=== PATIENT | male | born 1960 | race Caucasian/White ===

== ENCOUNTER 2017-10-04 14:12 | Inpatient (IN) | payer SELFPAY ==
[~2017-10-04] VITALS: Ht 172.7 cm; Wt 60.1 kg
--- NOTE | ~2017-10-04 | CON ---
[place], [place] REPORT OF CONSULTATION NAME: [facility] UNIT #: [id number] ROOM: 403 DOCTOR: EULALIA WOOD MD,BRANDON BIRTHDATE: [birth year] DOS: 10/07/2017 The patient was asked for consultation to be seen for the acute pneumonia of the respiratory problem, but the patient signed against medical advice. The patient left the hospital prior to the assessment completion. BRANDON ESTEBAN MD CM:CONSTR:REPORT OF CONSULTATION 1315 10/07/17 2015 interface
[~2017-10-04 14:12] MED LIST: ISOSORBIDE30 MG PO
[2017-10-04 14:31] VITALS: BP 120/88
[2017-10-04 14:54] LABS: BASO % 0.1 % (0.0-1.0); EOS % 0.2 % (1.0-4.0); HEMATOCRIT 47.9 % (42.0-52.0); HEMOGLOBIN 16.6 g/dl (14.0-18.0); LYMPH # 1.4 10*3/uL (1.3-4.4); MEAN CORPUSCULAR HGB 35.7 pg (27.0-31.0); MEAN CORPUSCULAR HGB CONC 34.7 g/dl (33.0-37.0); MEAN PLATELET VOLUME 11.1 fl (9.6-12.3); MONO # 1.1 10*3/uL (0.1-1.0); MONO % 8.4 % (3.0-9.0); NEUT # 10.2 10*3/uL (2.3-7.9); NEUT % 79.8 % (47.0-73.0); PLATELET COUNT AUTOMATED 137 10*3/uL (130-400); RED BLOOD COUNT 4.65 10*6/uL (4.50-5.90); RED CELL DISTRI WIDTH 13.4 % (0-14.5); WHITE BLOOD COUNT 12.8 10*3/uL (4.8-10.8)
[2017-10-04 15:00] VITALS: BP 118/86
[2017-10-04 15:03] LABS: ACT PARTIAL THROMBO TIME 25.3 SECONDS (20.8-31.5); INTERNATIONAL NORM RATIO 1.1 (2.0-3.5)
[2017-10-04 16:03] LABS: ALBUMIN 3.5 gm/dl (3.1-4.5); ALKALINE PHOSPHATASE 78 U/L (45-117); BUN 9 mg/dl (7-24); CHLORIDE 98 mmol/L (98-107); CREATININE 0.68 mg/dL (0.70-1.30); POTASSIUM 4.3 mmol/L (3.5-5.1); SGOT/AST 101 IU/L (3-35); SODIUM 133 mmol/L (136-145); TOTAL PROTEIN 8.5 gm/dL (6.4-8.2)
[2017-10-04 16:06] LABS: SGPT/ALT 44 U/L (12-78)
[2017-10-04 16:08] LABS: TROPONIN I < 0.015 ng/ml (<0.045)
[2017-10-04 17:00] VITALS: BP 124/82
[2017-10-04 17:50] VITALS: BP 137/88
[2017-10-04 20:00] VITALS: BP 134/86
[2017-10-05 01:08] VITALS: BP 143/85
[2017-10-05 07:44] LABS: HEMATOCRIT 47.9 % (42.0-52.0); MEAN CELL VOLUME 105.7 fl (80.0-94.0); MEAN CORPUSCULAR HGB 35.3 pg (27.0-31.0); MEAN CORPUSCULAR HGB CONC 33.4 g/dl (33.0-37.0); PLATELET COUNT AUTOMATED 102 10*3/uL (130-400); RED BLOOD COUNT 4.53 10*6/uL (4.50-5.90); RED CELL DISTRI WIDTH 13.3 % (0-14.5); WHITE BLOOD COUNT 6.2 10*3/uL (4.8-10.8)
[2017-10-05 08:00] VITALS: BP 143/94
[2017-10-05 08:08] LABS: PLATELET SUFFICIENCY LOW (NORMAL); TOTAL CELLS COUNTED 100 #CELLS; TOXIC GRANULATION SLIGHT
[2017-10-05 08:17] LABS: BUN 9 mg/dl (7-24); CHLORIDE 102 mmol/L (98-107); CHOLESTEROL 124 mg/dL (<200); HDL CHOLESTEROL 40 mg/dl (40-60); PHOSPHOROUS 2.6 mg/dL (2.5-4.9); POTASSIUM 4.1 mmol/L (3.5-5.1); SGOT/AST 76 IU/L (3-35); SGPT/ALT 38 U/L (12-78); SODIUM 135 mmol/L (136-145); TOTAL PROTEIN 7.8 gm/dL (6.4-8.2)
[2017-10-05 08:24] LABS: ALKALINE PHOSPHATASE 65 U/L (45-117); THYROID STIM HORMONE (HS) 0.373 uIU/ml (0.358-4.75)
[2017-10-05 08:29] LABS: VITAMIN D, 25-HYDROXY 13.6 ng/mL (30-100)
[2017-10-05 10:17] LABS: CREATININE 0.66 mg/dL (0.70-1.30); LDL CHOLESTEROL 73 mg/dL (9-159); TRIGLYCERIDES 56 mg/dl (<150); VLDL CHOLESTEROL 11 mg/dL (6-40)
[2017-10-05 12:00] VITALS: BP 139/83
[2017-10-05 16:00] VITALS: BP 136/81
[2017-10-05 20:00] VITALS: BP 121/75
[2017-10-06 00:58] VITALS: BP 131/84
[2017-10-06 07:29] LABS: HEMATOCRIT 44.7 % (42.0-52.0); HEMOGLOBIN 14.9 g/dl (14.0-18.0); MEAN CELL VOLUME 105.2 fl (80.0-94.0); MEAN CORPUSCULAR HGB 35.1 pg (27.0-31.0); MEAN CORPUSCULAR HGB CONC 33.3 g/dl (33.0-37.0); MEAN PLATELET VOLUME 9.3 fl (9.6-12.3); PLATELET COUNT AUTOMATED 120 10*3/uL (130-400); RED BLOOD COUNT 4.25 10*6/uL (4.50-5.90); RED CELL DISTRI WIDTH 13.3 % (0-14.5)
[2017-10-06 07:50] LABS: BUN 9 mg/dl (7-24); CHLORIDE 102 mmol/L (98-107); CREATININE 0.51 mg/dL (0.70-1.30); SODIUM 136 mmol/L (136-145)
[2017-10-06 08:00] VITALS: BP 126/79
[2017-10-06 08:21] LABS: PLATELET SUFFICIENCY LOW (NORMAL); TOTAL CELLS COUNTED 100 #CELLS
[2017-10-06 12:00] VITALS: BP 123/64
[2017-10-06 16:39] VITALS: BP 104/65
[2017-10-06 20:10] VITALS: BP 125/73
[2017-10-07] VITALS: BP 115/74
[2017-10-07 08:43] VITALS: BP 130/83
[2017-10-07] MEDS ORDERED: PREDNISONE10 MG PO (16:36)
[2017-10-07] MEDS ORDERED: PROAIR HFA8.5 GM INH (16:36)
== END 2017-10-07 11:14 | disposition left against medical advice (07) | DRG 871 ==
LOC: ED 14:12 → 4E 16:24 → EDHOLD 16:24 → 4E 17:24
PROVIDERS: Physician Assistant; Student in an Organized Health Care Education/Training Program
PROC: 02HV33Z Insertion of Infusion Device into Superior Vena Cava, Percutaneous Approach (ICD-10-PCS; principal; 2017-10-04)
PROC: 4A02XM4 Measurement of Cardiac Total Activity, External Approach (ICD-10-PCS; principal; 2017-10-04)
PROC: 3E073KZ Introduction of Other Diagnostic Substance into Coronary Artery, Percutaneous Approach (ICD-10-PCS; principal; 2017-10-04)
DX: A41.9 Sepsis, unspecified organism (principal); J18.9 Pneumonia, unspecified organism; J96.01 Acute respiratory failure with hypoxia; E87.1 Hypo-osmolality and hyponatremia; E83.41 Hypermagnesemia; R74.0 Nonspecific elevation of levels of transaminase and lactic acid dehydrogenase [LDH]; D75.89 Other specified diseases of blood and blood-forming organs; E78.5 Hyperlipidemia, unspecified; I10 Essential (primary) hypertension; R65.20 Severe sepsis without septic shock; I25.10 Atherosclerotic heart disease of native coronary artery without angina pectoris; Z53.21 Procedure and treatment not carried out due to patient leaving prior to being seen by health care provider; E78.00 Pure hypercholesterolemia, unspecified; Z82.49 Family history of ischemic heart disease and other diseases of the circulatory system; Z72.0 Tobacco use; Z71.6 Tobacco abuse counseling; Z78.9 Other specified health status; I25.2 Old myocardial infarction; Z84.89 Family history of other specified conditions; Z91.14 Patient's other noncompliance with medication regimen

== ENCOUNTER 2017-10-07 16:08 | Emergency (ER) | payer SELFPAY ==
[~2017-10-07] VITALS: Ht 172.7 cm; Wt 65.8 kg
[2017-10-07 16:34] LABS: BASO % 0.2 % (0.0-1.0); HEMATOCRIT 48.2 % (42.0-52.0); HEMOGLOBIN 16.3 g/dl (14.0-18.0); LYMPH # 0.7 10*3/uL (1.3-4.4); LYMPH % 5.7 % (27.0-41.0); MEAN CELL VOLUME 104.6 fl (80.0-94.0); MEAN CORPUSCULAR HGB 35.4 pg (27.0-31.0); MEAN CORPUSCULAR HGB CONC 33.8 g/dl (33.0-37.0); MEAN PLATELET VOLUME 8.9 fl (9.6-12.3); MONO # 0.9 10*3/uL (0.1-1.0); MONO % 6.9 % (3.0-9.0); NEUT # 10.8 10*3/uL (2.3-7.9); NEUT % 86.4 % (47.0-73.0); RED BLOOD COUNT 4.61 10*6/uL (4.50-5.90); RED CELL DISTRI WIDTH 13.6 % (0-14.5); WHITE BLOOD COUNT 12.5 10*3/uL (4.8-10.8)
[2017-10-07] MEDS ORDERED: PROAIR HFA8.5 GM INH (16:36)
[2017-10-07] MEDS ORDERED: PREDNISONE10 MG PO (16:36)
[2017-10-07 16:37] LABS: PLATELET COUNT AUTOMATED 159 10*3/uL (130-400)
[2017-10-07 16:49] LABS: ALBUMIN 3.4 gm/dl (3.1-4.5); ALKALINE PHOSPHATASE 62 U/L (45-117); BUN 12 mg/dl (7-24); CHLORIDE 100 mmol/L (98-107); CREATININE 0.66 mg/dL (0.70-1.30); POTASSIUM 4.1 mmol/L (3.5-5.1); SGOT/AST 44 IU/L (3-35); SGPT/ALT 34 U/L (12-78); SODIUM 136 mmol/L (136-145); TOTAL PROTEIN 8.4 gm/dL (6.4-8.2)
== END 2017-10-07 16:58 | disposition home or self-care (01) ==
LOC: ED 16:08
PROVIDERS: Nurse Practitioner Family
DX: J44.9 Chronic obstructive pulmonary disease, unspecified (principal); I10 Essential (primary) hypertension; E78.5 Hyperlipidemia, unspecified; F17.200 Nicotine dependence, unspecified, uncomplicated; I25.2 Old myocardial infarction; Z95.5 Presence of coronary angioplasty implant and graft; Z87.01 Personal history of pneumonia (recurrent); Z79.899 Other long term (current) drug therapy

== ENCOUNTER 2017-12-12 12:06 | Emergency (ER) | payer OTHER ==
[~2017-12-12] VITALS: Ht 172.7 cm; Wt 65.8 kg
[~2017-12-12 12:06] MED LIST changes: +PREDNISONE10 MG PO; +PROAIR HFA8.5 GM INH
[2017-12-12] MEDS ORDERED: IBUPROFEN600 MG PO (12:42)
[2017-12-12] MEDS ORDERED: AUGMENTIN 875875 MG PO (12:42)
== END 2017-12-12 13:38 | disposition home or self-care (01) ==
LOC: ED 12:06
DX: S61.452A Open bite of left hand, initial encounter (principal); F17.200 Nicotine dependence, unspecified, uncomplicated; Z95.5 Presence of coronary angioplasty implant and graft; Z79.899 Other long term (current) drug therapy; W54.0XXA Bitten by dog, initial encounter; Y93.89 Activity, other specified; Y92.89 Other specified places as the place of occurrence of the external cause; Y99.9 Unspecified external cause status

== ENCOUNTER 2018-04-05 09:40 | Emergency (ER) | payer OTHER ==
[~2018-04-05] VITALS: Ht 172.7 cm; Wt 65.8 kg
[~2018-04-05 09:40] MED LIST changes: +AUGMENTIN 875875 MG PO; +IBUPROFEN600 MG PO
[2018-04-05] MEDS ORDERED: NAPROSYN500 MG PO (12:26)
== END 2018-04-05 14:26 | disposition home or self-care (01) ==
LOC: ED 09:40
DX: S63.502A Unspecified sprain of left wrist, initial encounter (principal); F17.200 Nicotine dependence, unspecified, uncomplicated; X58.XXXA Exposure to other specified factors, initial encounter; Y93.89 Activity, other specified; Y92.89 Other specified places as the place of occurrence of the external cause; Y99.8 Other external cause status

== ENCOUNTER 2018-06-28 17:16 | Emergency (ER) | payer OTHER ==
[~2018-06-28] VITALS: Ht 172.7 cm; Wt 65.8 kg
[~2018-06-28 17:16] MED LIST changes: +NAPROSYN500 MG PO
== END 2018-06-28 18:10 | disposition left against medical advice (07) ==
LOC: ED 17:16
DX: S01.81XA Laceration without foreign body of other part of head, initial encounter (principal); I25.2 Old myocardial infarction; F17.200 Nicotine dependence, unspecified, uncomplicated; Z79.899 Other long term (current) drug therapy; W20.8XXA Other cause of strike by thrown, projected or falling object, initial encounter; Y93.89 Activity, other specified; Y92.89 Other specified places as the place of occurrence of the external cause; Y99.8 Other external cause status

== ENCOUNTER 2018-07-30 09:00 | Emergency (ER) | payer OTHER ==
[2018-07-30] MEDS ORDERED: CHLORZOXAZONE500 M2 PO (09:11)
[2018-07-30] MEDS ORDERED: NAPROSYN500 MG PO (09:11)
== END 2018-07-30 09:21 | disposition home or self-care (01) ==
LOC: ED 09:00
DX: S76.312A Strain of muscle, fascia and tendon of the posterior muscle group at thigh level, left thigh, initial encounter (principal); I10 Essential (primary) hypertension; J44.9 Chronic obstructive pulmonary disease, unspecified; E78.5 Hyperlipidemia, unspecified; I25.2 Old myocardial infarction; F17.200 Nicotine dependence, unspecified, uncomplicated; X50.3XXA Overexertion from repetitive movements, initial encounter; Y93.89 Activity, other specified; Y92.89 Other specified places as the place of occurrence of the external cause; Y99.8 Other external cause status

== ENCOUNTER 2019-03-01 10:21 | Emergency (ER) | payer OTHER ==
[~2019-03-01] VITALS: Ht 172.7 cm; Wt 63.5 kg
[~2019-03-01 10:21] MED LIST changes: +CHLORZOXAZONE500 M2 PO
[2019-03-01] MEDS ORDERED: ROBAXIN-750750 MG PO (12:55)
[2019-03-01] MEDS ORDERED: PREDNISONE20 M1 PO (12:55)
== END 2019-03-01 12:47 | disposition home or self-care (01) ==
LOC: ED 10:21
DX: S29.012A Strain of muscle and tendon of back wall of thorax, initial encounter (principal); M62.830 Muscle spasm of back; M54.10 Radiculopathy, site unspecified; I25.2 Old myocardial infarction; F17.200 Nicotine dependence, unspecified, uncomplicated; Z79.899 Other long term (current) drug therapy; X58.XXXA Exposure to other specified factors, initial encounter; Y93.84 Activity, sleeping; Y92.89 Other specified places as the place of occurrence of the external cause; Y99.8 Other external cause status

== ENCOUNTER 2022-02-03 14:11 | Emergency (ER) | payer MEDICAID ==
[~2022-02-03] VITALS: Wt 65.8 kg
[~2022-02-03 14:11] MED LIST changes: +PREDNISONE20 M1 PO; +ROBAXIN-750750 MG PO
[2022-02-03 14:46] LABS: BILIRUBIN Negative (Negative); BLOOD Negative (Negative); CLARITY Clear (Clear); COLOR Yellow (Yellow); GLUCOSE Negative (Negative); KETONE Negative (Negative); LEUKO ESTERASE Negative (Negative); NITRITE Negative (Negative); PH 6.5 (4.5-8.0)
[2022-02-03 15:05] LABS: INTERNATIONAL NORM RATIO 1.4 (2.0-3.5)
[2022-02-03 15:18] LABS: LIPASE 265 U/L (73-393)
[2022-02-03 15:19] LABS: ALKALINE PHOSPHATASE 76 U/L (45-117); BUN 15 mg/dl (7-24); CHLORIDE 104 mmol/L (98-107); POTASSIUM 3.7 mmol/L (3.5-5.1); SGOT/AST 60 IU/L (3-35); SGPT/ALT 26 U/L (12-78); SODIUM 135 mmol/L (136-145); TOTAL PROTEIN 7.7 gm/dL (6.4-8.2)
[2022-02-03 15:34] LABS: WBC 0-2 wbc/hpf (0-5)
[2022-02-03 15:35] LABS: BACTERIA TRACE; EPITHELIAL CELLS 21-30
[2022-02-03 15:36] LABS: BASO % 0.1 % (0.0-1.0); EOS # 0.1 10*3/uL (0.0-0.4); EOS % 1.1 % (1.0-4.0); HEMATOCRIT 40.9 % (42.0-52.0); LYMPH % 13.5 % (27.0-41.0); MEAN CELL VOLUME 91.3 fl (80.0-94.0); MEAN CORPUSCULAR HGB 29.5 pg (27.0-31.0); MEAN CORPUSCULAR HGB CONC 32.3 g/dl (33.0-37.0); MEAN PLATELET VOLUME 9.9 fl (9.6-12.3); MONO # 1.2 10*3/uL (0.1-1.0); MONO % 16.4 % (3.0-9.0); NEUT # 4.9 10*3/uL (2.3-7.9); NEUT % 68.5 % (47.0-73.0); PLATELET COUNT AUTOMATED 68 10*3/uL (130-400); RED BLOOD COUNT 4.48 10*6/uL (4.50-5.90); WHITE BLOOD COUNT 7.2 10*3/uL (4.8-10.8)
== END 2022-02-03 16:55 | disposition left against medical advice (07) ==
LOC: ED 14:11
PROVIDERS: Emergency Medicine
DX: J44.1 Chronic obstructive pulmonary disease with (acute) exacerbation (principal); R74.8 Abnormal levels of other serum enzymes; R42 Dizziness and giddiness; Z87.891 Personal history of nicotine dependence